=== PATIENT | female | born 1975 | race Caucasian/White ===

== ENCOUNTER 2018-01-14 16:13 | Emergency (ER) | payer BC ==
[~2018-01-14] VITALS: Ht 175.3 cm; Wt 130.2 kg
[2018-01-14 16:30] VITALS: Ht 175.3 cm; Wt 130.2 kg
[2018-01-14 18:26] LABS: BASOPHIL % 0.4 % (0-2); PLATELET COUNT 225 x10^3mcL (130-400)
[2018-01-14 18:28] LABS: RED CELL DISTRIBUTION WIDTH 15.3 % (11.5-14.5)
[2018-01-14 18:42] LABS: CALCIUM 9.3 mg/dL (8.5-10.1); CARBON DIOXIDE 29.2 mmol/L (21-32); CHLORIDE SERUM 102 mmol/L (98-107); CREATININE SERUM 0.9 mg/dL (0.6-1.0); GFR1 > 60 mL/min; GLUCOSE SERUM 132 mg/dL (74-106); POTASSIUM SERUM 3.8 mmol/L (3.5-5.1); SODIUM SERUM 139 mmol/L (136-145)
[2018-01-14 18:48] LABS: ALKALINE PHOSPHATASE 119 U/L (46-116); ALT/SGPT 84 U/L (14-59); AST/SGOT 48 U/L (15-37); CHOLESTEROL 162 mg/dL (<200); LIPASE 73 IU/L (73-393); TOTAL PROTEIN, SERUM 7.2 g/dL (6.4-8.2)
[2018-01-14 18:51] LABS: ALBUMIN 3.2 g/dL (3.4-5.0); CHOLESTEROL/HDL RATIO 6.8; HDL CHOLESTEROL 24 mg/dL (40-60); TRIGLYCERIDES 441 mg/dL (<150)
[2018-01-14 18:54] LABS: FREE T4 0.83 ng/dL (0.76-1.46); FREE THYROXINE INDEX 1.9 ug/dL (1.4-4.5); T4(THYROXINE) 6.6 ug/dL (4.7-13.3)
[2018-01-14 18:56] LABS: T3 TOTAL 1.7 ng/mL
[2018-01-14 19:53] VITALS: BP 140/75
== END 2018-01-14 19:53 | disposition home or self-care (01) ==
LOC: ED 16:13
PROVIDERS: Specialist
DX: R60.9 Edema, unspecified (principal); Z88.0 Allergy status to penicillin; Z88.1 Allergy status to other antibiotic agents; Z88.5 Allergy status to narcotic agent
CPT/HCPCS: 83880; 84439; J7030; Q0092